=== PATIENT | female | born 1975 | race Caucasian/White ===

== ENCOUNTER 2017-02-22 15:00 | Emergency (ER) | payer OTHER ==
[~2017-02-22] VITALS: Wt 69.9 kg
[~2017-02-22 15:00] MED LIST: ACULAR 3 ML3 M1 OP; ATIVAN1 MG PO; CIPRO500 MG PO; CLINDAMYCIN HC300 MG PO; EES400 MG PO; FLEXERIL10 MG PO; FLOMAX0.4 MG PO; HYDROCODONE BIT1 T11 PO; IBU-6600 MG PO; IBUPROFEN400 MG PO; MOTRIN800 MG PO; MULTIPLE VITAMI1 CAP PO; Motrin,Rufen800 MG PO; NAPROSYN500 MG PO; NKHM; NORCO 10-325 T1 EACH PO; NORFLEX100 MG PO; PAXIL10 MG PO; PROZAC10 MG PO; PROZAC20 MG PO; PYRIDIUM200 MG PO; SKELAXIN800 M1 PO; TOBRAMYCIN 5 ML5 M1 OPH; TRAMADOL HCL50 MG PO; ULTRAM50 MG PO; VIBRAMYCIN100 MG PO; VICODIN 5/500 505 MG PO; VOLTAREN50 M1 PO; ZANAFLEX4 M2 PO; ZOFRAN4 MG PO; Zithromax200 MG/5 M PO; Zofran4 MG PO
[2017-02-22 15:48] VITALS: BP 117/71
[2017-02-22 16:52] LABS: BILIRUBIN NEGATIVE (NEGATIVE); BLOOD NEGATIVE (NEGATIVE); CLARITY CLEAR (CLEAR); COLOR YELLOW (YELLOW); GLUCOSE NEGATIVE (NEGATIVE); KETONE NEGATIVE (NEGATIVE); LEUKO ESTERASE NEGATIVE (NEGATIVE); NITRITE NEGATIVE (NEGATIVE); PH 5.5 (5.0-9.0); PROTEIN NEGATIVE (NEGATIVE); UROBILINOGEN 0.2 E.U./dl (0.2-1.0)
[2017-02-22 17:03] LABS: BACTERIA TRACE; RBC 0-2 rbc/hpf (0-2); URINE REFLEX COMMENT NO (NO); WBC 0-2 wbc/hpf (0-5)
== END 2017-02-22 18:12 | disposition home or self-care (01) ==
LOC: ED 15:00
PROVIDERS: Nurse Practitioner Family
DX: Z32.02 Encounter for pregnancy test, result negative (principal); F17.200 Nicotine dependence, unspecified, uncomplicated; Z98.890 Other specified postprocedural states; Z79.899 Other long term (current) drug therapy; Z88.4 Allergy status to anesthetic agent; Z88.0 Allergy status to penicillin

== ENCOUNTER 2017-04-05 15:11 | Emergency (ER) | payer OTHER ==
[~2017-04-05] VITALS: Ht 152.4 cm; Wt 73.5 kg
[2017-04-05 15:19] VITALS: BP 132/84
[2017-04-05] MEDS ORDERED: SEPTRA DS 800 M1 TAB PO (15:19)
== END 2017-04-05 16:27 | disposition home or self-care (01) ==
LOC: ED 15:11
DX: S05.02XA Injury of conjunctiva and corneal abrasion without foreign body, left eye, initial encounter (principal); F17.200 Nicotine dependence, unspecified, uncomplicated; Z88.0 Allergy status to penicillin; Z88.4 Allergy status to anesthetic agent; Z79.899 Other long term (current) drug therapy; X58.XXXA Exposure to other specified factors, initial encounter; Y93.89 Activity, other specified; Y92.9 Unspecified place or not applicable; Y99.9 Unspecified external cause status

== ENCOUNTER 2017-11-30 17:14 | Emergency (ER) | payer OTHER ==
[~2017-11-30] VITALS: Ht 152.4 cm; Wt 72.6 kg
[~2017-11-30 17:14] MED LIST changes: +SEPTRA DS 800 M1 TAB PO
[2017-11-30 18:08] LABS: BASO # 0.1 10*3/uL (0.0-0.1); BASO % 0.3 % (0.0-1.0); EOS # 0.1 10*3/uL (0.0-0.4); EOS % 0.3 % (1.0-4.0); HEMATOCRIT 44.9 % (37.0-47.0); HEMOGLOBIN 15.2 g/dl (12.0-16.0); LYMPH # 1.2 10*3/uL (1.3-4.4); LYMPH % 7.2 % (27.0-41.0); MEAN CELL VOLUME 93.9 fl (81.0-99.0); MEAN CORPUSCULAR HGB 31.8 pg (27.0-31.0); MEAN CORPUSCULAR HGB CONC 33.9 g/dl (33.0-37.0); MONO % 5.8 % (3.0-9.0); NEUT # 14.2 10*3/uL (2.3-7.9); PLATELET COUNT AUTOMATED 412 10*3/uL (130-400); RED BLOOD COUNT 4.78 10*6/uL (4.10-5.10); RED CELL DISTRI WIDTH 13.5 % (0-14.5); WHITE BLOOD COUNT 16.5 10*3/uL (4.8-10.8)
[2017-11-30 18:16] LABS: BILIRUBIN NEGATIVE (NEGATIVE); BLOOD 2+ (NEGATIVE); CLARITY SL CLOUDY (CLEAR); COLOR YELLOW (YELLOW); GLUCOSE NEGATIVE (NEGATIVE); KETONE NEGATIVE (NEGATIVE); LEUKO ESTERASE NEGATIVE (NEGATIVE); NITRITE NEGATIVE (NEGATIVE); SPECIFIC GRAVITY 1.025 (1.005-1.030); UROBILINOGEN 0.2 E.U./dl (0.2-1.0)
[2017-11-30 18:22] LABS: ALKALINE PHOSPHATASE 81 U/L (45-117); BUN 22 mg/dl (7-24); CHLORIDE 103 mmol/L (98-107); CREATININE 0.73 mg/dL (0.55-1.02); POTASSIUM 3.9 mmol/L (3.5-5.1); SGOT/AST 17 IU/L (3-35); SGPT/ALT 31 U/L (12-78); SODIUM 136 mmol/L (136-145); TOTAL PROTEIN 8.2 gm/dL (6.4-8.2)
[2017-11-30 18:34] LABS: BACTERIA 1+; EPITHELIAL CELLS TNTC; MUCOUS TRACE
[2017-11-30 19:15] VITALS: BP 103/51
[2017-11-30] MEDS ORDERED: NAPROSYN500 MG PO (20:16)
[2017-11-30] MEDS ORDERED: Zofran4 MG PO (20:16)
[2017-11-30] MEDS ORDERED: NORCO 5-325 TA1 EACH PO (20:16)
[2017-11-30] MEDS ORDERED: SEPTDS PO (20:20)
== END 2017-11-30 20:31 | disposition home or self-care (01) ==
LOC: ED 17:14
PROVIDERS: Physician Assistant
DX: N20.0 Calculus of kidney (principal); F17.200 Nicotine dependence, unspecified, uncomplicated; Z88.0 Allergy status to penicillin

== ENCOUNTER → 2018-04-13 | Outpatient (CLI) | payer OTHER ==
[~2018-04-13] MED LIST changes: +NORCO 5-325 TA1 EACH PO; +SEPTDS PO
== END | disposition home or self-care (01) ==
LOC: CT 10:20
DX: K76.0 Fatty (change of) liver, not elsewhere classified (principal); R31.9 Hematuria, unspecified; N20.0 Calculus of kidney

== ENCOUNTER → 2018-04-19 | Outpatient (CLI) | payer OTHER ==
[2018-04-19 11:03] LABS: BASO # 0.1 10*3/uL (0.0-0.1); BASO % 0.5 % (0.0-1.0); EOS # 0.1 10*3/uL (0.0-0.4); EOS % 1.2 % (1.0-4.0); HEMATOCRIT 41.2 % (37.0-47.0); HEMOGLOBIN 13.5 g/dl (12.0-16.0); LYMPH # 2.8 10*3/uL (1.3-4.4); MEAN CELL VOLUME 94.5 fl (81.0-99.0); MEAN CORPUSCULAR HGB CONC 32.8 g/dl (33.0-37.0); MEAN PLATELET VOLUME 10.1 fl (9.6-12.3); MONO # 0.7 10*3/uL (0.1-1.0); MONO % 6.6 % (3.0-9.0); NEUT # 6.4 10*3/uL (2.3-7.9); NEUT % 63.4 % (47.0-73.0); PLATELET COUNT AUTOMATED 413 10*3/uL (130-400); RED BLOOD COUNT 4.36 10*6/uL (4.10-5.10); RED CELL DISTRI WIDTH 13.1 % (0-14.5); WHITE BLOOD COUNT 10.2 10*3/uL (4.8-10.8)
[2018-04-19 11:34] LABS: ALBUMIN 3.8 gm/dl (3.1-4.5); ALKALINE PHOSPHATASE 67 U/L (45-117); BUN 14 mg/dl (7-24); CHLORIDE 106 mmol/L (98-107); CREATININE 0.68 mg/dL (0.55-1.02); POTASSIUM 4.2 mmol/L (3.5-5.1); SGOT/AST 10 IU/L (3-35); SGPT/ALT 25 U/L (12-78); SODIUM 137 mmol/L (136-145); T3 UPTAKE 29 % (31-39); TOTAL PROTEIN 7.8 gm/dL (6.4-8.2)
[2018-04-19 17:03] LABS: BILIRUBIN NEGATIVE (NEGATIVE); BLOOD NEGATIVE (NEGATIVE); CLARITY CLEAR (CLEAR); COLOR YELLOW (YELLOW); GLUCOSE NEGATIVE (NEGATIVE); KETONE NEGATIVE (NEGATIVE); LEUKO ESTERASE NEGATIVE (NEGATIVE); NITRITE NEGATIVE (NEGATIVE); UROBILINOGEN 0.2 E.U./dl (0.2-1.0)
[2018-04-19 17:10] LABS: BACTERIA TRACE; EPITHELIAL CELLS 41-50; RBC 0-2 rbc/hpf (0-2)
== END | disposition home or self-care (01) ==
LOC: LAB 10:35
PROVIDERS: Nurse Practitioner Family
DX: N20.0 Calculus of kidney (principal)

== ENCOUNTER 2018-07-11 18:58 | Emergency (ER) | payer OTHER ==
[~2018-07-11] VITALS: Ht 152.4 cm; Wt 72.6 kg
[2018-07-11 19:02] VITALS: BP 142/86
[2018-07-11] MEDS ORDERED: NAPROSYN500 MG PO (20:27)
== END 2018-07-11 21:45 | disposition home or self-care (01) ==
LOC: ED 18:58
DX: M25.562 Pain in left knee (principal); Z88.0 Allergy status to penicillin; Z79.899 Other long term (current) drug therapy

== ENCOUNTER → 2018-08-16 | Outpatient (CLI) | payer OTHER | END | disposition home or self-care (01) | LOC: ORTHO 01:10 | DX: M25.562 Pain in left knee (principal) ==

== ENCOUNTER → 2019-04-19 | Day surgery (SDC) | payer OTHER ==
[2019-04-18 09:45] VITALS: BP 122/64
[~2019-04-19] VITALS: Ht 152.4 cm; Wt 73.5 kg
[~2019-04-19] MED LIST changes: +BENADRYL ALLERG25 M5 PO; +GEMFIBROZIL600 MG PO; +HYDROCODONE-AC1 EAC1 PO; +IBU800 M2 PO; +TYLENOL325 M1 PO
--- NOTE | ~2019-04-19 | O ---
[place], [place] OPERATIVE NOTE NAME: AVTAR DELATORRE [facility] #: [id number] UNIT #: [id number] ROOM: DOCTOR: LARRY LEVY MD BIRTHDATE: [birth year] DOS: 04/19/2019 PREOPERATIVE DIAGNOSIS: Biliary dyskinesia. POSTOPERATIVE DIAGNOSIS: Biliary dyskinesia. PROCEDURE: Laparoscopic cholecystectomy. SURGEON: Larry Levy M.D. TRANSMISSION CALIBRATION ENGINEER: JAYDA. ANESTHESIA: General with endotracheal intubation. INDICATIONS: This is a 43-year-old lady with a history of symptomatic biliary dyskinesia, is here for the above-mentioned procedure. The procedure and its complications were explained to the patient in detail preoperatively. Complications that were discussed included but were not limited to bleeding, infection, hematoma/seroma/abscess formation, prolonged postoperative pain, damage to lying vital structures, biloma formation, inadvertent injury to the common bile duct and incisional hernia formation. She agreed to proceed. DESCRIPTION OF PROCEDURE: After identifying the patient, the patient was brought to the operating suite and laid in the supine position. After induction of general anesthesia, timeout procedure was called and the parts were then painted and draped in the usual sterile fashion. An incision was made in the subumbilical position in the transverse fashion. The skin and the subcutaneous tissue were incised. The fascia was incised vertically and 2 stay sutures with 0 Vicryl were taken on either side. The peritoneum was opened and a 12 mm Maria Ines port was introduced into the peritoneal cavity. Pneumoperitoneum was created. Under direct vision, an epigastric incision of 10 mm and two 5 mm incisions were made in the right upper quadrant and appropriate size ports were introduced. Since the gallbladder was small relative to the size of the liver, it was decided to perform the top down procedure for removal of the gallbladder. The peritoneum overlying the gallbladder was incised in the fundus and gradually away from the liver bed. After adequate dissection was completed, the cystic duct and the cystic artery were then easily visualized and the triangle of Calot as well as the critical view of safety was obtained. Each of the structures were then clipped 3 times and cut between the first and the second clip. The gallbladder was removed from the bed of the gallbladder and placed in an EndoCatch bag and sent for histopathological diagnosis. Hemostasis was achieved in the liver bed. Thereafter, the right upper quadrant and the epigastric ports were removed and there was no bleeding seen. The umbilical port was also removed and the 2 stay sutures were tied together and an additional 0 Vicryl stitch was taken to close the fascial defect, 1% plain lidocaine was injected in all the 4 incisions and then they were approximated with the help of 4-0 Vicryl in a subcuticular running fashion. Dressings were placed. The patient tolerated the procedure well. There were no complications. Dr. Larry Levy, the attending surgeon, was present throughout the operating case. [place], [place] OPERATIVE NOTE NAME: NANDINIAVTAR S UNIT #: [id number] ROOM: DOCTOR: LARRY LEVY MD BIRTHDATE: [birth year] Larry Levy MD CM:OPRECORD:OPERATIVE NOTE 1151 [id number] LARRY LEVY MD 04/19/19 1247 interface
--- NOTE | ~2019-04-19 | EKG ---
[place], [place] ELECTROCARDIOGRAM REPORT NAME: AVTAR DELATORRE UNIT #: [id number] ROOM: DOCTOR: EPIPHANY DRAFT REPORT BIRTHDATE: [birth year] [facility] Test Date: 2019-04-18 Test Time: 10:51:39 Pat Name: AVTAR DELATORRE Department: Room: Gender: F Truck Driver Flatbed: : 1975 Requested By: VESTA MURRIETA Order Number: [id number] Reading MD: Norma Chao MD Measurements Intervals [place] Rate: 65 P: 15 WA: 133 QRS: 61 QRSD: 89 T: 22 QT: 413 QTc: 430 Interpretive Statements Sinus rhythm Electronically Signed On 04-18-2019 12:01:37 PDT by Norma Chao MD CM:EKGRPT:ELECTROCARDIOGRAM REPORT 1051 1201 VESTA MURRIETA MD EPIPHANY DRAFT REPORT VESTA MURRIETA MD
[2019-04-19 09:10] VITALS: BP 112/75
[2019-04-19 11:44] VITALS: BP 127/64
[2019-04-19 11:58] VITALS: BP 107/61
[2019-04-19 12:10] VITALS: BP 129/63
[2019-04-19 12:30] VITALS: BP 119/58
[2019-04-19 12:45] VITALS: BP 108/56
== END ==
LOC: SDC 04-18 09:00
DX: K82.4 Cholesterolosis of gallbladder (principal); F41.9 Anxiety disorder, unspecified; F32.9 Major depressive disorder, single episode, unspecified; G43.909 Migraine, unspecified, not intractable, without status migrainosus; M19.90 Unspecified osteoarthritis, unspecified site; F17.210 Nicotine dependence, cigarettes, uncomplicated; E78.5 Hyperlipidemia, unspecified; Z88.0 Allergy status to penicillin; Z88.8 Allergy status to other drugs, medicaments and biological substances; Z79.1 Long term (current) use of non-steroidal anti-inflammatories (NSAID); Z79.899 Other long term (current) drug therapy; Z85.41 Personal history of malignant neoplasm of cervix uteri; Z86.74 Personal history of sudden cardiac arrest; Z98.890 Other specified postprocedural states; Z86.73 Personal history of transient ischemic attack (TIA), and cerebral infarction without residual deficits; Z72.89 Other problems related to lifestyle; Z82.49 Family history of ischemic heart disease and other diseases of the circulatory system

== ENCOUNTER 2019-07-28 14:57 | Emergency (ER) | payer OTHER ==
[~2019-07-28] VITALS: Ht 152.4 cm; Wt 72.6 kg
[2019-07-28 15:00] VITALS: BP 174/91
[2019-07-28 15:23] LABS: BILIRUBIN NEGATIVE (NEGATIVE); BLOOD NEGATIVE (NEGATIVE); CLARITY CLOUDY (CLEAR); COLOR YELLOW (YELLOW); GLUCOSE NEGATIVE (NEGATIVE); KETONE NEGATIVE (NEGATIVE); LEUKO ESTERASE NEGATIVE (NEGATIVE); NITRITE NEGATIVE (NEGATIVE); PH 6.5 (5.0-9.0); SPECIFIC GRAVITY 1.025 (1.005-1.030); UROBILINOGEN 0.2 E.U./dl (0.2-1.0)
[2019-07-28] MEDS ORDERED: PRILOSEC20 M1 PO (15:26)
[2019-07-28 15:27] LABS: RBC 0-2 rbc/hpf (0-2)
[2019-07-28 15:28] LABS: BACTERIA 2+; EPITHELIAL CELLS TNTC; MUCOUS TRACE
== END 2019-07-28 16:18 | disposition home or self-care (01) ==
LOC: ED 14:57
PROVIDERS: Physician Assistant
DX: N91.2 Amenorrhea, unspecified (principal); K21.9 Gastro-esophageal reflux disease without esophagitis; F17.210 Nicotine dependence, cigarettes, uncomplicated; Z76.0 Encounter for issue of repeat prescription; Z79.899 Other long term (current) drug therapy; Z88.0 Allergy status to penicillin; Z88.4 Allergy status to anesthetic agent; Z90.49 Acquired absence of other specified parts of digestive tract

== ENCOUNTER → 2019-11-22 | Emergency (ER) | payer OTHER ==
[~2019-11-22] VITALS: Ht 152.4 cm; Wt 69.9 kg
[~2019-11-22] MED LIST changes: +PRILOSEC20 M1 PO
[2019-11-22 21:39] VITALS: BP 147/91
[2019-11-22 22:06] LABS: BILIRUBIN NEGATIVE (NEGATIVE); BLOOD NEGATIVE (NEGATIVE); CLARITY CLEAR (CLEAR); COLOR YELLOW (YELLOW); GLUCOSE NEGATIVE (NEGATIVE); KETONE NEGATIVE (NEGATIVE); LEUKO ESTERASE NEGATIVE (NEGATIVE); NITRITE NEGATIVE (NEGATIVE); PH 6.5 (5.0-9.0); SPECIFIC GRAVITY 1.025 (1.005-1.030); UROBILINOGEN 0.2 E.U./dl (0.2-1.0)
[2019-11-22 22:23] LABS: EPITHELIAL CELLS 20-25
[2019-11-22 22:25] LABS: WBC 0-2 wbc/hpf (0-5)
== END ==
LOC: ED 21:25
PROVIDERS: Physician Assistant
DX: R10.9 Unspecified abdominal pain (principal); G89.29 Other chronic pain; E78.00 Pure hypercholesterolemia, unspecified; F17.210 Nicotine dependence, cigarettes, uncomplicated; Z87.442 Personal history of urinary calculi; Z88.4 Allergy status to anesthetic agent; Z88.0 Allergy status to penicillin; Z79.899 Other long term (current) drug therapy; Z86.73 Personal history of transient ischemic attack (TIA), and cerebral infarction without residual deficits

== ENCOUNTER → 2019-11-28 | Outpatient (CLI) | payer OTHER ==
[2019-11-28 11:04] LABS: BASO # 0.1 10*3/uL (0.0-0.1); BASO % 0.6 % (0.0-1.0); EOS # 0.1 10*3/uL (0.0-0.4); HEMATOCRIT 40.4 % (37.0-47.0); HEMOGLOBIN 12.9 g/dl (12.0-16.0); LYMPH # 3.3 10*3/uL (1.3-4.4); LYMPH % 27.5 % (27.0-41.0); MEAN CELL VOLUME 92.7 fl (81.0-99.0); MEAN CORPUSCULAR HGB 29.6 pg (27.0-31.0); MEAN CORPUSCULAR HGB CONC 31.9 g/dl (33.0-37.0); MEAN PLATELET VOLUME 10.5 fl (9.6-12.3); MONO # 0.6 10*3/uL (0.1-1.0); MONO % 5.1 % (3.0-9.0); NEUT # 7.8 10*3/uL (2.3-7.9); NEUT % 65.5 % (47.0-73.0); PLATELET COUNT AUTOMATED 559 10*3/uL (130-400); RED BLOOD COUNT 4.36 10*6/uL (4.10-5.10); RED CELL DISTRI WIDTH 13.3 % (0-14.5); RETICULOCYTE % 1.72 % (0.50-2.50); WHITE BLOOD COUNT 11.8 10*3/uL (4.8-10.8)
[2019-11-28 11:07] LABS: BILIRUBIN NEGATIVE (NEGATIVE); CLARITY SL CLOUDY (CLEAR); COLOR YELLOW (YELLOW); GLUCOSE NEGATIVE (NEGATIVE); KETONE NEGATIVE (NEGATIVE)
[2019-11-28 11:08] LABS: BLOOD 3+ (NEGATIVE); LEUKO ESTERASE NEGATIVE (NEGATIVE); NITRITE NEGATIVE (NEGATIVE); SPECIFIC GRAVITY 1.005 (1.005-1.030); UROBILINOGEN 0.2 E.U./dl (0.2-1.0)
[2019-11-28 11:18] LABS: BACTERIA 1+; RBC 0-2 rbc/hpf (0-2); WBC 0-2 wbc/hpf (0-5)
[2019-11-28 11:42] LABS: ALBUMIN 3.9 gm/dl (3.1-4.5); ALKALINE PHOSPHATASE 89 U/L (45-117); BUN 11 mg/dl (7-24); CHLORIDE 105 mmol/L (98-107); CHOLESTEROL 191 mg/dL (<200); GAMMA GLUTAMYL TRANSPEPTIDASE 30 U/L (5-55); HDL CHOLESTEROL 35 mg/dl (40-60); IRON 55 ug/dL (50-170); LDL CHOLESTEROL 113 mg/dL (9-159); POTASSIUM 4.2 mmol/L (3.5-5.1); SGOT/AST 22 IU/L (3-35); SGPT/ALT 36 U/L (12-78); SODIUM 138 mmol/L (136-145); T3 UPTAKE 30 % (31-39); THYROXINE (T4) TOTAL 8.6 ug/dl (4.8-13.9); TOTAL IRON BINDING CAPACITY 489 ug/dl (250-450); TOTAL PROTEIN 8.1 gm/dL (6.4-8.2); TRIGLYCERIDES 216 mg/dl (<150); VLDL CHOLESTEROL 43 mg/dL (6-40)
[2019-11-28 12:59] LABS: FERRITIN 13.3 ng/mL (10.0-291.0); VITAMIN D, 25-HYDROXY 20.4 ng/mL (30-100)
== END | disposition home or self-care (01) ==
LOC: LAB 10:27
PROVIDERS: Family Medicine
DX: E55.9 Vitamin D deficiency, unspecified (principal); R79.89 Other specified abnormal findings of blood chemistry; R53.83 Other fatigue

== ENCOUNTER 2020-10-13 14:06 | Emergency (ER) | payer OTHER ==
[2020-10-13 14:18] VITALS: BP 155/73
[2020-10-13] MEDS ORDERED: CEPHALEXIN500 M1 PO (15:13)
== END 2020-10-13 15:25 | disposition home or self-care (01) ==
LOC: ED 14:06
DX: S61.213A Laceration without foreign body of left middle finger without damage to nail, initial encounter (principal); S61.215A Laceration without foreign body of left ring finger without damage to nail, initial encounter; E78.00 Pure hypercholesterolemia, unspecified; Z79.899 Other long term (current) drug therapy; Z98.890 Other specified postprocedural states; Z86.73 Personal history of transient ischemic attack (TIA), and cerebral infarction without residual deficits; Z87.442 Personal history of urinary calculi; Z87.891 Personal history of nicotine dependence; W26.0XXA Contact with knife, initial encounter; Y93.89 Activity, other specified; Y92.69 Other specified industrial and construction area as the place of occurrence of the external cause; Y99.8 Other external cause status; Z88.4 Allergy status to anesthetic agent; Z88.0 Allergy status to penicillin

== ENCOUNTER 2021-04-12 20:14 | Emergency (ER) | payer OTHER ==
[~2021-04-12] VITALS: Ht 152.4 cm; Wt 71.7 kg
[~2021-04-12 20:14] MED LIST changes: +CEPHALEXIN500 M1 PO
[2021-04-12 20:19] VITALS: BP 152/74
[2021-04-12] MEDS ORDERED: NEURONTIN100 MG PO (20:33)
[2021-04-12 21:18] LABS: BILIRUBIN Negative (Negative); BLOOD Negative (Negative); CLARITY Cloudy (Clear); COLOR Yellow (Yellow); GLUCOSE Negative (Negative); KETONE Trace (Negative); LEUKO ESTERASE Negative (Negative); NITRITE Negative (Negative); SPECIFIC GRAVITY 1.025 (1.001-1.030)
[2021-04-12 21:30] LABS: BACTERIA 1+; EPITHELIAL CELLS 16-20; MUCOUS 1+; RBC 0-2 rbc/hpf (0-2)
== END 2021-04-12 21:59 | disposition home or self-care (01) ==
LOC: ED 20:14
PROVIDERS: Internal Medicine
DX: R51.9 Headache, unspecified (principal); I10 Essential (primary) hypertension; Z88.8 Allergy status to other drugs, medicaments and biological substances; Z88.0 Allergy status to penicillin; Z79.899 Other long term (current) drug therapy

== ENCOUNTER → 2021-04-20 | Outpatient (CLI) | payer OTHER ==
[~2021-04-20] MED LIST changes: +NEURONTIN100 MG PO
[2021-04-20 14:09] LABS: BASO # 0.1 10*3/uL (0.0-0.1); EOS # 0.1 10*3/uL (0.0-0.4); EOS % 0.9 % (1.0-4.0); HEMATOCRIT 34.2 % (37.0-47.0); LYMPH # 2.9 10*3/uL (1.3-4.4); LYMPH % 31.5 % (27.0-41.0); MEAN CELL VOLUME 74.2 fl (81.0-99.0); MEAN CORPUSCULAR HGB 21.7 pg (27.0-31.0); MEAN CORPUSCULAR HGB CONC 29.2 g/dl (33.0-37.0); MEAN PLATELET VOLUME 9.5 fl (9.6-12.3); MONO # 0.7 10*3/uL (0.1-1.0); NEUT # 5.4 10*3/uL (2.3-7.9); NEUT % 58.3 % (47.0-73.0); PLATELET COUNT AUTOMATED 711 10*3/uL (130-400); RED BLOOD COUNT 4.61 10*6/uL (4.10-5.10); RED CELL DISTRI WIDTH 18.6 % (0-14.5); RETICULOCYTE % 1.38 % (0.50-2.50); WHITE BLOOD COUNT 9.3 10*3/uL (4.8-10.8)
[2021-04-20 14:09] LABS: BILIRUBIN Negative (Negative); BLOOD 2+ (Negative); CLARITY Clear (Clear); COLOR Yellow (Yellow); GLUCOSE Negative (Negative); KETONE Negative (Negative); LEUKO ESTERASE Negative (Negative); NITRITE Negative (Negative); PH 6.5 (4.5-8.0); SPECIFIC GRAVITY <= 1.005 (1.001-1.030); UROBILINOGEN 0.2 E.U./dl (0.0-1.0)
[2021-04-20 14:44] LABS: EPITHELIAL CELLS 21-30; WBC 0-2 wbc/hpf (0-5)
[2021-04-20 14:49] LABS: ALBUMIN 4.1 gm/dl (3.1-4.5); ALKALINE PHOSPHATASE 94 U/L (45-117); BUN 12 mg/dl (7-24); CHLORIDE 104 mmol/L (98-107); CHOLESTEROL 234 mg/dL (<200); CREATININE 0.71 mg/dL (0.55-1.02); GAMMA GLUTAMYL TRANSPEPTIDASE 17 U/L (5-55); IRON 33 ug/dL (50-170); LDL CHOLESTEROL 158 mg/dL (9-159); POTASSIUM 3.9 mmol/L (3.5-5.1); SGOT/AST 24 IU/L (3-35); SGPT/ALT 30 U/L (12-78); SODIUM 135 mmol/L (136-145); T3 UPTAKE 30 % (31-39); TOTAL IRON BINDING CAPACITY 640 ug/dl (250-450); TOTAL PROTEIN 9.1 gm/dL (6.4-8.2); TRIGLYCERIDES 169 mg/dl (<150); URIC ACID 4.9 mg/dL (2.6-6.0)
[2021-04-20 15:13] LABS: FERRITIN 3.5 ng/mL (10.0-291.0)
[2021-04-21 06:07] LABS: RHEUMATOID ARTHRITIS FACTOR <10.0 IU/mL (0.0-13.9)
[2021-04-21 13:06] LABS: ANTI-DSDNA ANTIBODIES <1 IU/mL (0-9)
== END | disposition home or self-care (01) ==
LOC: LAB 13:40
PROVIDERS: ATTEND Family Medicine
DX: E55.9 Vitamin D deficiency, unspecified (principal); R53.83 Other fatigue; E78.5 Hyperlipidemia, unspecified; R74.8 Abnormal levels of other serum enzymes; R79.89 Other specified abnormal findings of blood chemistry

== ENCOUNTER → 2021-06-15 | Outpatient (CLI) | payer OTHER | END | disposition home or self-care (01) | LOC: MAMMO 13:23 | PROVIDERS: ATTEND Internal Medicine Hematology & Oncology | DX: Z12.31 Encounter for screening mammogram for malignant neoplasm of breast (principal) ==

== ENCOUNTER → 2021-11-11 | Outpatient (CLI) | payer OTHER | LOC: COVID19 17:34 | PROVIDERS: ATTEND Internal Medicine | DX: U07.1 COVID-19 (principal) ==

== ENCOUNTER 2022-06-10 15:49 | Emergency (ER) | payer OTHER ==
[~2022-06-10] VITALS: Ht 152.4 cm; Wt 72.6 kg
[2022-06-10 17:16] VITALS: BP 119/77
== END 2022-06-10 17:20 | disposition home or self-care (01) ==
LOC: ED 15:49
DX: S90.31XA Contusion of right foot, initial encounter (principal); Z88.4 Allergy status to anesthetic agent; Z88.0 Allergy status to penicillin; Z79.899 Other long term (current) drug therapy; F17.210 Nicotine dependence, cigarettes, uncomplicated; Z98.890 Other specified postprocedural states; W20.8XXA Other cause of strike by thrown, projected or falling object, initial encounter; Y93.89 Activity, other specified; Y92.89 Other specified places as the place of occurrence of the external cause; Y99.8 Other external cause status

== ENCOUNTER → 2022-09-09 | Outpatient (CLI) | payer OTHER ==
[2022-09-09 18:44] LABS: BILIRUBIN Negative (Negative); BLOOD Negative (Negative); CLARITY Clear (Clear); COLOR Yellow (Yellow); GLUCOSE Negative (Negative); KETONE Negative (Negative); LEUKO ESTERASE Negative (Negative); NITRITE Negative (Negative); UROBILINOGEN 0.2 E.U./dl (0.0-1.0)
[2022-09-09 18:50] LABS: BACTERIA TRACE; EPITHELIAL CELLS 16-20; WBC 0-2 wbc/hpf (0-5)
[2022-09-09 19:09] LABS: FERRITIN 56.6 ng/mL (10.0-291.0); VITAMIN D, 25-HYDROXY 9.2 ng/mL (30-100)
[2022-09-11 03:06] LABS: DHEA SULFATE 97.2 ug/dL (41.2-243.7); PROLACTIN 6.5 ng/mL (4.8-23.3); SEX HORMONE BINDING GLOBULIN 51.5 nmol/L (24.6-122.0)
[2022-09-11 04:06] LABS: FOLLICLE STIMULATING HORMONE 26.3 mIU/mL (.); LUTEINIZING HORMONE 52.1 mIU/mL (.)
[2022-09-11 09:07] LABS: RHEUMATOID FACTOR <10.0 IU/mL (<14.0)
[2022-09-11 14:08] LABS: ANTI-DSDNA ANTIBODIES 1 IU/mL (0-9)
[2022-09-11 21:06] LABS: INSULIN-LIKE GROWTH FACTOR-1 237 ng/mL (70-225)
[2022-09-15 10:06] LABS: TESTOSTERONE FREE, (DIRECT) 1.3 pg/mL (0.0-4.2)
[2022-09-15 11:06] LABS: DEHYDROEPIANDROSTERONE 271 ng/dL (31-701)
== END | disposition home or self-care (01) ==
LOC: LAB 17:36
PROVIDERS: ATTEND Family Medicine
DX: E78.5 Hyperlipidemia, unspecified (principal); E55.9 Vitamin D deficiency, unspecified; R79.89 Other specified abnormal findings of blood chemistry; R53.83 Other fatigue; R74.8 Abnormal levels of other serum enzymes

== ENCOUNTER 2023-02-08 07:49 | Emergency (ER) | payer OTHER ==
[~2023-02-08] VITALS: Ht 152.4 cm; Wt 72.6 kg
[2023-02-08 07:55] VITALS: BP 149/95
[2023-02-08 08:30] LABS: BILIRUBIN Negative (Negative); BLOOD Negative (Negative); CLARITY Clear (Clear); COLOR Yellow (Yellow); GLUCOSE Negative (Negative); KETONE Negative (Negative); LEUKO ESTERASE Trace (Negative); NITRITE Negative (Negative); PH 6.5 (4.5-8.0); SPECIFIC GRAVITY <= 1.005 (1.001-1.030); UROBILINOGEN 0.2 E.U./dl (0.0-1.0)
[2023-02-08] MEDS ORDERED: CEPHALEXIN500 M1 PO (08:50)
[2023-02-08] MEDS ORDERED: SEPTDS PO (08:50)
[2023-02-08 09:05] LABS: BACTERIA 2+
== END 2023-02-08 08:46 | disposition home or self-care (01) ==
LOC: ED 07:49
PROVIDERS: Emergency Medicine
DX: N76.4 Abscess of vulva (principal); N39.0 Urinary tract infection, site not specified; E78.00 Pure hypercholesterolemia, unspecified; Z87.442 Personal history of urinary calculi; Z88.0 Allergy status to penicillin; Z88.8 Allergy status to other drugs, medicaments and biological substances; Z98.890 Other specified postprocedural states; F17.210 Nicotine dependence, cigarettes, uncomplicated

== ENCOUNTER → 2023-06-08 | Outpatient (CLI) | payer OTHER ==
[2023-06-08 12:15] LABS: BASO # 0.1 10*3/uL (0.0-0.1); BASO % 0.6 % (0.0-1.0); EOS # 0.2 10*3/uL (0.0-0.4); EOS % 1.6 % (1.0-4.0); HEMATOCRIT 42.1 % (37.0-47.0); LYMPH # 2.2 10*3/uL (1.3-4.4); LYMPH % 22.8 % (27.0-41.0); MEAN CELL VOLUME 95.7 fl (81.0-99.0); MEAN CORPUSCULAR HGB 31.8 pg (27.0-31.0); MEAN CORPUSCULAR HGB CONC 33.3 g/dl (33.0-37.0); MEAN PLATELET VOLUME 10.4 fl (9.6-12.3); MONO # 0.6 10*3/uL (0.1-1.0); NEUT # 6.5 10*3/uL (2.3-7.9); NEUT % 68.6 % (47.0-73.0); PLATELET COUNT AUTOMATED 510 10*3/uL (130-400); RED CELL DISTRI WIDTH 14.1 % (0-14.5); RETICULOCYTE % 2.81 % (0.50-2.50); WHITE BLOOD COUNT 9.5 10*3/uL (4.8-10.8)
[2023-06-08 12:19] LABS: BILIRUBIN Negative (Negative); BLOOD Negative (Negative); CLARITY Clear (Clear); COLOR Yellow (Yellow); GLUCOSE Negative (Negative); KETONE Negative (Negative); LEUKO ESTERASE Negative (Negative); NITRITE Negative (Negative); SPECIFIC GRAVITY 1.015 (1.001-1.030)
[2023-06-08 12:39] LABS: BACTERIA 1+; MUCOUS 1+
[2023-06-08 12:40] LABS: ALKALINE PHOSPHATASE 72 U/L (46-116); BUN 14 mg/dl (9-23); CHLORIDE 102 mmol/L (98-107); CHOLESTEROL 237 mg/dL (<200); GAMMA GLUTAMYL TRANSPEPTIDASE 26 U/L (0-73); LDL CHOLESTEROL 160 mg/dL (9-159); SGPT/ALT 25 U/L (10-49); T3 UPTAKE 17.2 % (22.4-36.7); THYROXINE (T4) TOTAL 5.9 ug/dl (4.5-10.9); TOTAL PROTEIN 8.1 gm/dL (6.0-8.0); TRIGLYCERIDES 172 mg/dl (<150); URIC ACID 4.8 mg/dL (3.1-7.8)
[2023-06-08 12:58] LABS: VITAMIN D, 25-HYDROXY 32.4 ng/mL (30-100)
[2023-06-09 16:08] LABS: ANTI-DSDNA ANTIBODIES 1 IU/mL (0-9)
== END | disposition home or self-care (01) ==
LOC: LAB 10:54
PROVIDERS: ATTEND Family Medicine
DX: E78.5 Hyperlipidemia, unspecified (principal); E55.9 Vitamin D deficiency, unspecified; R79.89 Other specified abnormal findings of blood chemistry; R53.83 Other fatigue; R74.8 Abnormal levels of other serum enzymes

== ENCOUNTER → 2023-06-15 | Outpatient (CLI) | payer OTHER | END | disposition home or self-care (01) | LOC: NM 09:59 | PROVIDERS: ATTEND Urology | DX: R10.9 Unspecified abdominal pain (principal) ==

== ENCOUNTER → 2023-07-29 | Outpatient (CLI) | payer OTHER | END | disposition home or self-care (01) | LOC: US 01:02 | PROVIDERS: ATTEND Nurse Practitioner Women's Health | DX: D25.9 Leiomyoma of uterus, unspecified (principal); N94.9 Unspecified condition associated with female genital organs and menstrual cycle ==

== ENCOUNTER → 2024-02-01 | Outpatient (CLI) | payer OTHER | END | disposition home or self-care (01) | LOC: RAD 08:28 | PROVIDERS: ATTEND Chiropractor | DX: M54.2 Cervicalgia (principal); M54.50 Low back pain, unspecified; I70.0 Atherosclerosis of aorta ==

== ENCOUNTER → 2024-03-26 | Outpatient (CLI) | payer OTHER ==
[2024-03-26 09:33] LABS: ALKALINE PHOSPHATASE 77 U/L (46-116); BUN 14 mg/dl (9-23); CHLORIDE 106 mmol/L (98-107); POTASSIUM 4.4 mmol/L (3.4-5.1); SGPT/ALT 62 U/L (5-49); TOTAL PROTEIN 8.2 gm/dL (6.0-8.0)
[2024-03-27 05:07] LABS: HBSAG Negative (Negative); HEP B CORE AB, IGM Negative (Negative); HEPATITIS C ANTIBODY Non Reactive (Non Reactive)
== END | disposition home or self-care (01) ==
LOC: LAB 08:43
PROVIDERS: ATTEND Internal Medicine Gastroenterology
DX: R79.89 Other specified abnormal findings of blood chemistry (principal); R10.9 Unspecified abdominal pain; R11.2 Nausea with vomiting, unspecified; K21.9 Gastro-esophageal reflux disease without esophagitis; G31.84 Mild cognitive impairment of uncertain or unknown etiology

== ENCOUNTER → 2024-04-11 | Outpatient (CLI) | payer OTHER ==
[2024-04-11 10:28] LABS: BASO # 0.1 10*3/uL (0.0-0.1); BASO % 0.7 % (0.0-1.0); EOS # 0.1 10*3/uL (0.0-0.4); EOS % 1.7 % (1.0-4.0); HEMATOCRIT 44.1 % (37.0-47.0); LYMPH # 2.5 10*3/uL (1.3-4.4); LYMPH % 35.4 % (27.0-41.0); MEAN CELL VOLUME 96.5 fl (81.0-99.0); MEAN CORPUSCULAR HGB 31.1 pg (27.0-31.0); MEAN CORPUSCULAR HGB CONC 32.2 g/dl (33.0-37.0); MEAN PLATELET VOLUME 10.5 fl (9.6-12.3); MONO # 0.6 10*3/uL (0.1-1.0); MONO % 7.7 % (3.0-9.0); NEUT # 3.8 10*3/uL (2.3-7.9); NEUT % 54.1 % (47.0-73.0); PLATELET COUNT AUTOMATED 397 10*3/uL (130-400); RED BLOOD COUNT 4.57 10*6/uL (4.10-5.10); RED CELL DISTRI WIDTH 13.5 % (0-14.5); RETICULOCYTE % 1.85 % (0.50-2.50); WHITE BLOOD COUNT 7.1 10*3/uL (4.8-10.8)
[2024-04-11 10:40] LABS: BILIRUBIN Negative (Negative); BLOOD Negative (Negative); CLARITY Clear (Clear); COLOR Yellow (Yellow); GLUCOSE Negative (Negative); KETONE Negative (Negative); LEUKO ESTERASE Negative (Negative); NITRITE Negative (Negative); PH 6.5 (4.5-8.0); UROBILINOGEN 0.2 E.U./dl (0.0-1.0)
[2024-04-11 10:56] LABS: ACT PARTIAL THROMBO TIME 29.5 SECONDS (20.0-32.1); RBC 0-2 rbc/hpf (0-2)
[2024-04-11 11:09] LABS: ALKALINE PHOSPHATASE 73 U/L (46-116); BUN 10 mg/dl (9-23); CHLORIDE 106 mmol/L (98-107); CHOLESTEROL 257 mg/dL (<200); GAMMA GLUTAMYL TRANSPEPTIDASE 43 U/L (0-73); LDL CHOLESTEROL 164 mg/dL (9-159); POTASSIUM 4.4 mmol/L (3.4-5.1); SGPT/ALT 77 U/L (5-49); TOTAL PROTEIN 7.8 gm/dL (6.0-8.0); TRIGLYCERIDES 283 mg/dl (<150)
[2024-04-11 11:25] LABS: VITAMIN D, 25-HYDROXY 26.7 ng/mL (30-100)
== END | disposition home or self-care (01) ==
LOC: LAB 10:09
PROVIDERS: ATTEND Family Medicine
DX: R79.89 Other specified abnormal findings of blood chemistry (principal); R53.83 Other fatigue; E78.5 Hyperlipidemia, unspecified; N92.6 Irregular menstruation, unspecified; E55.9 Vitamin D deficiency, unspecified

== ENCOUNTER → 2024-05-07 | Outpatient (CLI) | payer OTHER | END | disposition home or self-care (01) | LOC: RAD 09:47 | PROVIDERS: ATTEND Family Medicine | DX: M51.34 Other intervertebral disc degeneration, thoracic region (principal) ==

== ENCOUNTER → 2024-05-14 | Outpatient (CLI) | payer OTHER ==
[2024-05-14 10:43] LABS: BASO # 0.1 10*3/uL (0.0-0.1); BASO % 0.7 % (0.0-1.0); EOS # 0.2 10*3/uL (0.0-0.4); EOS % 1.6 % (1.0-4.0); HEMATOCRIT 42.2 % (37.0-47.0); LYMPH # 2.9 10*3/uL (1.3-4.4); MEAN CELL VOLUME 94.2 fl (81.0-99.0); MEAN CORPUSCULAR HGB CONC 32.9 g/dl (33.0-37.0); MEAN PLATELET VOLUME 10.5 fl (9.6-12.3); MONO # 0.6 10*3/uL (0.1-1.0); MONO % 6.8 % (3.0-9.0); NEUT # 5.4 10*3/uL (2.3-7.9); NEUT % 58.6 % (47.0-73.0); PLATELET COUNT AUTOMATED 397 10*3/uL (130-400); RED BLOOD COUNT 4.48 10*6/uL (4.10-5.10); RED CELL DISTRI WIDTH 12.9 % (0-14.5); RETICULOCYTE % 1.98 % (0.50-2.50); WHITE BLOOD COUNT 9.2 10*3/uL (4.8-10.8)
== END | disposition home or self-care (01) ==
LOC: LAB 10:29
PROVIDERS: ATTEND Family Medicine
DX: E78.5 Hyperlipidemia, unspecified (principal); R53.83 Other fatigue; R79.89 Other specified abnormal findings of blood chemistry

== ENCOUNTER → 2024-06-19 | Outpatient (CLI) | payer OTHER ==
[2024-06-19 11:17] LABS: BASO # 0.1 10*3/uL (0.0-0.1); BASO % 0.9 % (0.0-1.0); EOS # 0.3 10*3/uL (0.0-0.4); EOS % 3.5 % (1.0-4.0); HEMATOCRIT 43.4 % (37.0-47.0); LYMPH # 3.1 10*3/uL (1.3-4.4); LYMPH % 35.1 % (27.0-41.0); MEAN CELL VOLUME 95.8 fl (81.0-99.0); MEAN CORPUSCULAR HGB 31.6 pg (27.0-31.0); MEAN CORPUSCULAR HGB CONC 32.9 g/dl (33.0-37.0); MEAN PLATELET VOLUME 10.4 fl (9.6-12.3); MONO # 0.5 10*3/uL (0.1-1.0); MONO % 6.2 % (3.0-9.0); NEUT # 4.7 10*3/uL (2.3-7.9); NEUT % 53.7 % (47.0-73.0); PLATELET COUNT AUTOMATED 438 10*3/uL (130-400); RED BLOOD COUNT 4.53 10*6/uL (4.10-5.10); RED CELL DISTRI WIDTH 13.7 % (0-14.5); RETICULOCYTE % 2.51 % (0.50-2.50); WHITE BLOOD COUNT 8.8 10*3/uL (4.8-10.8)
[2024-06-19 11:24] LABS: BILIRUBIN Negative (Negative); BLOOD Negative (Negative); CLARITY Clear (Clear); COLOR Yellow (Yellow); GLUCOSE Negative (Negative); KETONE Negative (Negative); LEUKO ESTERASE Negative (Negative); NITRITE Negative (Negative); PH 6.5 (4.5-8.0); UROBILINOGEN 0.2 E.U./dl (0.0-1.0)
[2024-06-19 11:41] LABS: RBC 0-2 rbc/hpf (0-2)
[2024-06-19 11:47] LABS: ALKALINE PHOSPHATASE 82 U/L (46-116); BUN 10 mg/dl (9-23); CHLORIDE 104 mmol/L (98-107); CHOLESTEROL 182 mg/dL (<200); CPK 128 U/L (34-171); GAMMA GLUTAMYL TRANSPEPTIDASE 62 U/L (0-73); LDL CHOLESTEROL 113 mg/dL (9-159); POTASSIUM 4.4 mmol/L (3.4-5.1); SGPT/ALT 75 U/L (5-49); TOTAL PROTEIN 8.3 gm/dL (6.0-8.0); TRIGLYCERIDES 150 mg/dl (<150)
[2024-06-19 12:00] LABS: VITAMIN D, 25-HYDROXY 39.6 ng/mL (30-100)
== END | disposition home or self-care (01) ==
LOC: CARD 01:42 → LAB 01:42 → CARD 12:00
PROVIDERS: Family Medicine; Urology; ATTEND Internal Medicine Cardiovascular Disease
DX: I34.0 Nonrheumatic mitral (valve) insufficiency (principal); R79.89 Other specified abnormal findings of blood chemistry; R53.83 Other fatigue; E78.5 Hyperlipidemia, unspecified; E55.9 Vitamin D deficiency, unspecified

== ENCOUNTER → 2024-10-09 | Outpatient (CLI) | payer OTHER ==
[2024-10-09 09:57] LABS: BILIRUBIN Negative (Negative); BLOOD Negative (Negative); CLARITY Clear (Clear); COLOR Yellow (Yellow); GLUCOSE Negative (Negative); KETONE Negative (Negative); LEUKO ESTERASE Negative (Negative); NITRITE Negative (Negative); SPECIFIC GRAVITY <= 1.005 (1.001-1.030); UROBILINOGEN 0.2 E.U./dl (0.0-1.0)
[2024-10-09 09:57] LABS: BASO # 0.1 10*3/uL (0.0-0.1); BASO % 0.5 % (0.0-1.0); EOS # 0.2 10*3/uL (0.0-0.4); EOS % 1.5 % (1.0-4.0); HEMATOCRIT 43.6 % (37.0-47.0); MEAN CELL VOLUME 94.6 fl (81.0-99.0); MEAN CORPUSCULAR HGB 31.5 pg (27.0-31.0); MEAN CORPUSCULAR HGB CONC 33.3 g/dl (33.0-37.0); MEAN PLATELET VOLUME 9.9 fl (9.6-12.3); MONO # 0.6 10*3/uL (0.1-1.0); MONO % 5.9 % (3.0-9.0); NEUT # 6.6 10*3/uL (2.3-7.9); NEUT % 62.5 % (47.0-73.0); PLATELET COUNT AUTOMATED 416 10*3/uL (130-400); RED BLOOD COUNT 4.61 10*6/uL (4.10-5.10); RED CELL DISTRI WIDTH 13.1 % (0-14.5); RETICULOCYTE % 2.13 % (0.50-2.50); WHITE BLOOD COUNT 10.6 10*3/uL (4.8-10.8)
[2024-10-09 10:43] LABS: ALKALINE PHOSPHATASE 89 U/L (46-116); BUN 15 mg/dl (9-23); CHLORIDE 103 mmol/L (98-107); CHOLESTEROL 219 mg/dL (<200); GAMMA GLUTAMYL TRANSPEPTIDASE 87 U/L (0-73); LDL CHOLESTEROL 115 mg/dL (9-159); POTASSIUM 4.3 mmol/L (3.4-5.1); SGPT/ALT 84 U/L (5-49); TOTAL PROTEIN 8.5 gm/dL (6.0-8.0); TRIGLYCERIDES 302 mg/dl (<150); VITAMIN D, 25-HYDROXY 25.5 ng/mL (30-100)
== END | disposition home or self-care (01) ==
LOC: LAB 09:27 → US 10:30
PROVIDERS: Family Medicine; ATTEND Urology
DX: N20.0 Calculus of kidney (principal); K76.0 Fatty (change of) liver, not elsewhere classified; R79.89 Other specified abnormal findings of blood chemistry; R53.83 Other fatigue; E78.5 Hyperlipidemia, unspecified; E55.9 Vitamin D deficiency, unspecified

== ENCOUNTER → 2025-01-31 | Outpatient (CLI) | payer OTHER ==
[~2025-01-31] MED LIST changes: +IOHEXOL 350 MG/ML 100 ML VIAL IV ONE
== END | disposition home or self-care (01) ==
LOC: CT 08:53
PROVIDERS: ATTEND Urology
DX: N20.0 Calculus of kidney (principal); R10.9 Unspecified abdominal pain; I10 Essential (primary) hypertension; E11.9 Type 2 diabetes mellitus without complications; K76.0 Fatty (change of) liver, not elsewhere classified

== ENCOUNTER → 2025-02-18 | Outpatient (CLI) | payer OTHER ==
[~2025-02-18] MED LIST changes: -IOHEXOL 350 MG/ML 100 ML VIAL IV ONE
== END | disposition home or self-care (01) ==
LOC: RAD 07:56
PROVIDERS: ATTEND Family Medicine
DX: Z13.820 Encounter for screening for osteoporosis (principal); M81.0 Age-related osteoporosis without current pathological fracture; Z78.0 Asymptomatic menopausal state

== ENCOUNTER → 2025-04-24 | Outpatient (CLI) | payer OTHER ==
[2025-04-24 10:05] LABS: BASO % 0.4 % (0.0-1.0); EOS # 0.2 10*3/uL (0.0-0.4); EOS % 1.6 % (1.0-4.0); MEAN CELL VOLUME 93.7 fl (81.0-99.0); MEAN CORPUSCULAR HGB 31.4 pg (27.0-31.0); MEAN CORPUSCULAR HGB CONC 33.5 g/dl (33.0-37.0); MEAN PLATELET VOLUME 10.3 fl (9.6-12.3); MONO # 0.6 10*3/uL (0.1-1.0); MONO % 6.4 % (3.0-9.0); NEUT # 5.5 10*3/uL (2.3-7.9); NEUT % 59.3 % (47.0-73.0); PLATELET COUNT AUTOMATED 407 10*3/uL (130-400); RED BLOOD COUNT 4.91 10*6/uL (4.10-5.10); RED CELL DISTRI WIDTH 13.1 % (0-14.5); WHITE BLOOD COUNT 9.3 10*3/uL (4.8-10.8)
[2025-04-24 10:27] LABS: BILIRUBIN Negative (Negative); BLOOD Negative (Negative); CLARITY Clear (Clear); COLOR Yellow (Yellow); GLUCOSE Negative (Negative); KETONE Negative (Negative); LEUKO ESTERASE Negative (Negative); NITRITE Negative (Negative); PH 6.5 (4.5-8.0); SPECIFIC GRAVITY <= 1.005 (1.001-1.030); UROBILINOGEN 0.2 E.U./dl (0.0-1.0)
[2025-04-24 10:49] LABS: ALKALINE PHOSPHATASE 70 U/L (46-116); BUN 12 mg/dl (9-23); CHLORIDE 105 mmol/L (98-107); SGPT/ALT 91 U/L (5-49); TOTAL PROTEIN 8.6 gm/dL (6.0-8.0)
[2025-04-24 11:10] LABS: RBC 0-2 rbc/hpf (0-2)
[2025-04-24 11:22] LABS: FREE T4 1.01 ng/dl (0.89-1.76)
== END | disposition home or self-care (01) ==
LOC: LAB 09:39
PROVIDERS: ATTEND Nurse Practitioner
DX: N20.0 Calculus of kidney (principal); R53.83 Other fatigue

== ENCOUNTER → 2025-04-25 | Outpatient (CLI) | payer OTHER | END | disposition home or self-care (01) | LOC: LAB 12:00 | PROVIDERS: ATTEND Nurse Practitioner | DX: N20.0 Calculus of kidney (principal) ==